=== PATIENT | male | born 1980 | race Caucasian/White ===

== ENCOUNTER 2019-01-16 13:53 | Emergency (ER) | payer MEDICAID ==
[~2019-01-16] VITALS: Ht 162.6 cm; Wt 117.8 kg
[2019-01-16 14:03] VITALS: Ht 162.6 cm; Wt 117.8 kg
[2019-01-16] MEDS ORDERED: ACETAMINOPHEN 325 MG TAB PO ONE (15:30)
[2019-01-16] MEDS ORDERED: IBUPROFEN 600 MG TAB PO ONE (15:30)
[2019-01-16] MEDS ORDERED: AMOX500C2 PO (16:04)
[2019-01-16] MEDS ORDERED: IBUP-1542 PO (16:04)
--- NOTE | 2019-01-16 16:10 | ERD ---
ER Documentation Chief Complaint Chief Complaint R neck/jawline pain/swelling X 3 days HPI 38-year-old male patient with no significant past medical history presents to ED complaining of fever, right neck swelling that started about 4 days ago, worsened 3 days ago. States that he has right-sided sore throat. Reports that he has not taking any medications. States that his whole family is sick with similar symptoms with cough, runny nose, sore throat. Patient denies any chest pain, shortness of breath, nausea, vomiting, diarrhea, neck stiffness. ROS All systems reviewed and are negative except as per history of present illness. Medications Home Meds Active Scripts Ibuprofen* (Motrin*) 600 Mg Tab, 600 MG PO Q6, #30 TAB Prov:ERUM PRICE PA-C 01/16/19 Amoxicillin* (Amoxicillin*) 500 Mg Cap, 500 MG PO TID for 10 Days, CAP Prov:ERUM PRICE PA-C 01/16/19 Allergies Allergies: Coded Allergies: No Known Allergy (Unverified , 01/16/19) PMhx/Soc Medical and Surgical Hx: pt denies Medical Hx, pt denies Surgical Hx Hx Alcohol Use: No Hx Substance Use: No Hx Tobacco Use: No Smoking Status: Never smoker FmHx Family History: No diabetes, No coronary disease Physical Exam Vitals Vital Signs Date Temp Pulse Resp B/P (MAP) Pulse Ox O2 O2 Flow FiO2 Time Delivery Rate 01/16/19 101.1 82 18 149/89 98 14:03 (109) Physical Exam Const: Kny-vlw-yjhbwgbwq, well-nourished. In no acute distress. Head: Atraumatic, normocephalic Eyes: Normal Conjunctiva without injection. No purulent discharge. PERRL. EOMI ENT: Normal external ear. Ear canal without erythema. Tympanic membrane pearly lindsay without effusion or bulging. Nasal canal clear with normal turbinates. Moist oropharynx without tonsillar exudates. Non-erythematous pharynx. Uvula midline. No drooling. No trismus. Neck: Full range of motion. No meningismus. No cervical lymphadenopathy. Resp: Clear to auscultation bilaterally. No wheezing, rhonchi, rales, or crackles. No accessory muscle use. No retractions. Cardio: Regular rate and rhythm. No murmurs, rubs or gallops. Abd: Soft, non tender, non distended. Normal bowel sounds. No palpable masses. No rebound tenderness. No guarding. Skin: No petechiae or rashes Back: No midline tenderness. No CVA tenderness. Ext: No cyanosis, or edema. Neur: Awake and alert. Psych: Normal Mood and Affect Results 24 hrs Current Medications Medications Dose Sig/Arabella Start Time Status Last (Trade) Ordered Route PRN Stop Time Admin Dose Reason Admin Ibuprofen 600 mg ONCE ONCE 01/16/19 DC 01/16/19 (Motrin) PO 15:30 01/16/19 15:38 15:31 650 mg ONCE ONCE 01/16/19 DC 01/16/19 Acetaminophen PO 15:30 01/16/19 15:38 (Tylenol 15:31 Tab) Procedures/MDM 38-year-old male patient with no significant past medical history presents to ED complaining of fever that started 4 days ago associated with right sided sore throat and neck pain and swelling lymph nodes. Patient has a fever of 101.1. Ibuprofen, Tylenol was ordered to further downtrend patient's temperature. Patient's right sided swollen lymph node is likely secondary to acute bacterial tonsillitis. Patient is appropriate for outpatient management. Patient's physical exam include lungs which were clear to auscultation and a normal pulse oximetry. Bilateral ears pearly naylor. No tenderness to palpation of tragus or mastoid. Low suspicion for mastoiditis, otitis externa, otitis media. Patient is speaking in full sentences. There is a low suspicion for pneumonia, epiglottitis, croup, sinusitis, peritonsillar abscess, hands foot mouth disease, scarlet fever, Kawasaki disease, Stan's angina, retropharyngeal abscess, meningitis, sepsis, acute abdomen or other emergent conditions. Diagnosis: Acute bacterial Tonsillitis, Fever, Swollen lymph nodes Discharge medications: Motrin, Amoxicillin Follow up with primary care physician in 1-2 days. Instructed patient to return to the ED sooner for any worsening symptoms. Patient's questions were answered. Patient is hemodynamically stable. Patient understood and agreed with discharge plan. Patient discharged stable. Disclaimer: Inadvertent spelling and grammatical errors are likely due to EHR/dictation software use and do not reflect on the overall quality of patient care. Also, please note that the electronic time recorded on this note does not necessarily reflect the actual time of the patient encounter. Departure Diagnosis: Primary Impression: Acute bacterial tonsillitis Additional Impressions: Fever Fever type: unspecified Qualified Codes: R50.9 - Fever, unspecified Swollen lymph nodes Condition: Stable Patient Instructions: Cervical Adenitis, Antiobiotic Treatment, Pharyngitis, Strep (Presumed) [facility] Usted se beard hecho un examen mdico de control que le indica que no est en vanessa condicin que requiera tratamiento urgente en el Departamento de Emergencia. Un estudio ms profundo y el tratamiento de chaudhry condicin pueden esperar sin ningn riesgo hasta que usted sea atendida/o en el consultorio de chaudhry mdico o vanessa clnica. Es responsabilidad suya arreglar vanessa carolina para el seguimiento del katrin. MANEJO DE CONDICIONES NO URGENTES EN EL FUTURO 1) Si usted tiene un mdico de atencin primaria: Usted debera llamar a chaudhry mdico de atencin primaria antes de venir al departamento de emergencia. Despus de las horas de consultorio, chaudhry doctor o chaudhry asociado/a est disponible por telfono. El mdico o enfermero de donaldo en el servicio telefnico puede asesorarle por paulina medio para atender el problema, o katrin contrario se puede programar vanessa carolina. 2) Si usted no tiene un mdico de atencin primaria: Llame al mdico o clnica de referencia que aparece abajo jorge las horas de consultorio para hacer vanessa carolina para que le vean. CLINICAS: [facility] [phone] [address] [facility] [phone] [address] [facility] [phone] [address] [facility] [phone] [address] [facility] [phone] [address] [facility] [phone] [facility] () Ana se beard hecho un examen mdico de control que le indica que no est en vanessa condicin que requiera tratamiento urgente en el Departamento de Emergencia. Un estudio ms profundo y el tratamiento de chaudhry condicin pueden esperar sin ningn riesgo hasta que usted sea atendida/o en el consultorio de chaudhry mdico o vanessa clnica. Es responsabilidad suya arreglar vanessa carolina para el seguimiento del katrin. MANEJO DE CONDICIONES NO URGENTES EN EL FUTURO 1) Si usted tiene un mdico de atencin primaria: Usted debera llamar a chaudhry mdico de atencin primaria antes de venir al departamento de emergencia. Despus de las horas de consultorio, chaudhry doctor o chaudhry asociado/a est disponible por telfono. El mdico o enfermero de donaldo en el servicio telefnico puede asesorarle por paulina medio para atender el problema, o katrin contrario se puede programar vanessa carolina. 2) Si usted no tiene un mdico de atencin primaria: Llame al mdico o condado institucions de referencia que aparece abajo jorge las horas de consultorio para hacer vanessa carolina para que le vean. SI USTED NO PUEDE PAGAR PARA JAMIE UN MEDICO puede ir a: [facility] [address] [place] [address] [facility] [address] [place] [address] MERGED WITH [facility] [address] [place] [address] PARA [facility] [address] [place] [address] Additional Instructions: Llame al doctor MAANA y loyd vanessa CAROLINA PARA DENTRO DE 2-3 MASON.Dgale a la secretaria que nosotros le instruimos hacer esta carolina.Avise o llame si chaudhry condicin se empeora antes de la carolina. Regresa aqui si peor o no mejor. ERUM PRICE PA-C Jan 16, 2019 16:10
[2019-01-16 16:11] VITALS: BP 132/88; PULSE 77; RESP 18
== END 2019-01-16 16:13 | disposition home or self-care (01) ==
LOC: FTE 13:53
DX: J03.90 Acute tonsillitis, unspecified (principal)
CPT/HCPCS: Z7502; Z7610; 99283